=== PATIENT | female | born 1940 | race Caucasian/White ===

== ENCOUNTER → 2020-10-09 13:12 | Outpatient (CLI) | payer MEDICARE, OTHER, SELFPAY ==
[2020-10-09] MEDS: COVID-19 VACC #1, MRNA(MOD) 100 MCG/0.5 ML VIAL IM (13:20)
== END ==
PROVIDERS: Family Provider Family Medicine; PCP Family Medicine; Visit Provider Internal Medicine
DX: Z23 Encounter for immunization (principal)
CPT/HCPCS: 0011A; 91301

== ENCOUNTER → 2020-11-05 12:01 | Outpatient (CLI) | payer MEDICARE, OTHER, SELFPAY ==
[2020-11-05] MEDS: COVID-19 VACC #2, MRNA(MOD) 100 MCG/0.5 ML VIAL IM (12:08)
== END ==
PROVIDERS: Family Provider Family Medicine; PCP Family Medicine; Visit Provider Internal Medicine
DX: Z23 Encounter for immunization (principal)
CPT/HCPCS: 0012A; 91301